=== PATIENT | female | born 1990 | race Two or more races ===

== ENCOUNTER 2018-01-18 10:50 | Emergency (ER) | payer BC ==
[~2018-01-18] VITALS: Ht 167.6 cm; Wt 90.7 kg
[2018-01-18 11:10] VITALS: BP 147/97
--- NOTE | 2018-01-18 12:01 | Emergency Room Report ---
History of Present Illness General Chief Complaint: Flu Like Symptoms Source: Patient Present Illness HPI This patient c/o 2-3 days of viral URI symptoms including sore throat, rhinitis , nasal congestion, non productive cough. Malaise, myalgias, possibly tactile fever. The patient has no vomiting, chest pain or SOB. No travel history, leg pain/swelling. Allergies: Coded Allergies: NAPROXEN (Verified Allergy, Unknown, 01/18/18) Patient History Last Menstrual Period: Oc 2018 Nursing Documentation-[facility] Past Medical History: No History, Except For Review of Systems Constitutional: Reports: no symptoms Eye: Reports: no symptoms ENT: Reports: no symptoms Respiratory: Reports: no symptoms Cardiovascular: Reports: no symptoms Gastrointestinal: Reports: no symptoms Genitourinary: Reports: no symptoms Musculoskeletal: Reports: no symptoms Skin: Reports: no symptoms Psychiatric: Reports: no symptoms Neurological: Reports: no symptoms Endocrine: Reports: no symptoms Hematologic/Lymphatic: Reports: no symptoms Allergic: Reports: no symptoms All Other Systems: negative except mentioned in HPI Physical Exam Vital Signs Date Time Temp Pulse Resp B/P (MAP) Pulse Ox O2 Delivery O2 Flow Rate FiO2 01/18/18 10:43 98.4 95 16 147/97 98 Room Air Sp02 EP Interpretation: reviewed, normal General Appearance: normal inspection, well appearing, no apparent distress, alert, GCS 15, non-toxic Head: normocephalic, atraumatic Eyes: bilateral eye normal inspection, bilateral eye PERRL, bilateral eye EOMI ENT: hearing grossly normal, normal pharynx, no angioedema, normal voice, moist mucus membranes, pharyngeal erythema, other - nasal congestion, rhinitis Neck: normal inspection, full range of motion, supple, no meningismus, no bony tend Respiratory: normal inspection, lungs clear, normal breath sounds, no rhonchi, no respiratory distress, no retraction, no accessory muscle use, no wheezing Cardiovascular #1: normal inspection, regular rate, rhythm, no edema Gastrointestinal: normal inspection, normal bowel sounds, non tender, soft, no mass, non-distended Musculoskeletal: gait/station normal, normal range of motion Neurologic: normal inspection, alert, oriented x3, responsive, motor strength/ tone normal Psychiatric: normal inspection, judgement/insight normal, memory normal Suicide Risk Assessment: Suicidal Ideation: No Had intent to initiate attempt: No Pt's plan for suicide attempt: No Has means to complete attempt: No Skin: normal inspection, normal color, no rash, warm/dry Medical Decision Making Diagnostic Impression: Primary Impression: URI (upper respiratory infection) Additional Impression: Coryza ER Course coryza Last Vital Signs Date Time Temp Pulse Resp B/P (MAP) Pulse Ox O2 Delivery O2 Flow Rate FiO2 01/18/18 11:10 98.4 16 147/97 98 Room Air 01/18/18 11:10 95 Disposition: HOME, SELF-CARE Condition: Stable Patient Instructions: Upper Respiratory Infection, Adult, [id number] Robinson Echavarria M.D. Jan 18, 2018 12:01
[2018-01-18 12:14] VITALS: BP 133/78
== END 2018-01-18 12:14 | disposition home or self-care (01) ==
LOC: EDBD 10:50 → EMR 11:22
DX: J06.9 Acute upper respiratory infection, unspecified (principal); J00 Acute nasopharyngitis [common cold]; Z88.8 Allergy status to other drugs, medicaments and biological substances
CPT/HCPCS: 99283